=== PATIENT | female | born 1980 | race Caucasian/White ===

== ENCOUNTER 2018-11-18 01:34 | Inpatient (IN) | payer OTHER ==
[~2018-11-18] VITALS: Ht 160 cm; Wt 3.2 kg
[~2018-11-18 01:34] MED LIST: CEFDINIR250 MG/5 M PO; CEFTIN250 MG PO; URIN D.S. TABLE1 TAB
[2018-11-20] MEDS ORDERED: OXYC1TAB9 PO (08:47)
[2018-11-20] MEDS ORDERED: GAS RELIEF125 MG PO (08:48)
[2018-11-20] MEDS ORDERED: SOF-LAX100 MG PO (08:49)
[2018-11-20] MEDS ORDERED: PREPLUS CA-FE1 EACH PO (08:50)
== END 2018-11-20 13:56 | disposition home or self-care (01) | DRG 788 ==
LOC: LDR 01:34 → OB/GYN 01:34
PROVIDERS: ADMIT Obstetrics & Gynecology
PROC: 4A1HXCZ Monitoring of Products of Conception, Cardiac Rate, External Approach (ICD-10-PCS; 2018-11-18)
PROC: 4A033R1 Measurement of Arterial Saturation, Peripheral, Percutaneous Approach (ICD-10-PCS; 2018-11-18)
PROC: 10D00Z1 Extraction of Products of Conception, Low, Open Approach (ICD-10-PCS; principal; 2018-11-18 07:00)
DX: O34.211 Maternal care for low transverse scar from previous cesarean delivery (principal); O75.82 Onset (spontaneous) of labor after 37 completed weeks of gestation but before 39 completed weeks gestation, with delivery by (planned) cesarean section; Z3A.37 37 weeks gestation of pregnancy; Z37.0 Single live birth

== ENCOUNTER → 2019-11-11 | Outpatient (CLI) | payer OTHER ==
[~2019-11-11] MED LIST changes: +GAS RELIEF125 MG PO; +OXYC1TAB9 PO; +PREPLUS CA-FE1 EACH PO; +SOF-LAX100 MG PO
== END | disposition home or self-care (01) ==
LOC: PRENATAL 14:00
DX: O26.849 Uterine size-date discrepancy, unspecified trimester (principal); O26.859 Spotting complicating pregnancy, unspecified trimester; O35.3XX0 Maternal care for (suspected) damage to fetus from viral disease in mother, not applicable or unspecified; O09.529 Supervision of elderly multigravida, unspecified trimester; O34.219 Maternal care for unspecified type scar from previous cesarean delivery; Z3A.15 15 weeks gestation of pregnancy

== ENCOUNTER 2020-04-08 14:07 | Inpatient (IN) | payer OTHER ==
[~2020-04-08] VITALS: Ht 160 cm; Wt 65.8 kg
[2020-04-09] MEDS ORDERED: OBSTETRIX ONE1 EACH PO (09:19)
== END 2020-04-11 13:18 | disposition home or self-care (01) | DRG 785 ==
LOC: LDR 14:07 → SURG-SUITE 14:07
PROVIDERS: ADMIT Obstetrics & Gynecology; ATTEND Obstetrics & Gynecology
PROC: 0UT70ZZ Resection of Bilateral Fallopian Tubes, Open Approach (ICD-10-PCS; 2020-04-08)
PROC: 4A0HXFZ Measurement of Products of Conception, Cardiac Rhythm, External Approach (ICD-10-PCS; 2020-04-08)
PROC: 10D00Z1 Extraction of Products of Conception, Low, Open Approach (ICD-10-PCS; principal; 2020-04-08 16:00)
DX: O34.211 Maternal care for low transverse scar from previous cesarean delivery (principal); O82 Encounter for cesarean delivery without indication; Z3A.37 37 weeks gestation of pregnancy; Z37.0 Single live birth; Z30.2 Encounter for sterilization

== ENCOUNTER 2021-03-19 05:53 | Day surgery (SDC) | payer OTHER ==
[~2021-03-19 05:53] MED LIST changes: +ETONOGESTREL-E1 EACH VG; +OBSTETRIX ONE1 EACH PO
== END 2021-03-19 16:30 | disposition home or self-care (01) ==
LOC: CIR.AMB 05:53
PROVIDERS: ATTEND Surgery
DX: K42.0 Umbilical hernia with obstruction, without gangrene (principal); N64.82 Hypoplasia of breast; M62.08 Separation of muscle (nontraumatic), other site; E65 Localized adiposity; L98.7 Excessive and redundant skin and subcutaneous tissue; Z20.822 Contact with and (suspected) exposure to COVID-19

== ENCOUNTER → 2021-03-30 | Outpatient (CLI) | payer OTHER | END | disposition home or self-care (01) | LOC: TOM 11:34 | PROVIDERS: ATTEND Plastic Surgery | DX: I26.93 Single subsegmental thrombotic pulmonary embolism without acute cor pulmonale (principal) | CPT/HCPCS: 71275 ==

== ENCOUNTER 2021-08-30 08:00 | Outpatient (CLI) | payer OTHER | END 2021-08-30 08:30 | disposition home or self-care (01) | LOC: PPH VACUNA 08:00 | PROVIDERS: ATTEND Emergency Medicine Pediatric Emergency Medicine | DX: Z23 Encounter for immunization (principal) ==

== ENCOUNTER 2022-09-28 06:17 | Day surgery (SDC) | payer OTHER | END 2022-09-28 11:10 | disposition home or self-care (01) | LOC: AMB-ENDOS 06:17 | PROVIDERS: ATTEND Colon & Rectal Surgery | DX: D12.8 Benign neoplasm of rectum (principal); K64.8 Other hemorrhoids; Z20.822 Contact with and (suspected) exposure to COVID-19 ==